=== PATIENT | female | born 1955 | race Caucasian/White ===

== ENCOUNTER 2018-12-16 08:35 | Emergency (ER) | payer MEDICAID ==
[~2018-12-16] VITALS: Ht 160 cm; Wt 72.7 kg
[2018-12-16] MEDS ORDERED: ketorolac trometh inj. 60 MG/2 ML VIAL IM ONE (08:45)
[2018-12-16] MEDS ORDERED: HYDROcodone/acetaminophen 10/325mg tab PO ONE (08:45)
[2018-12-16 09:27] VITALS: BP 130/67
[2018-12-16] MEDS ORDERED: HYDR-4353 PO (09:38)
[2018-12-16] MEDS ORDERED: BUDE10.2 INH (09:46)
== END 2018-12-16 10:13 | disposition home or self-care (01) ==
LOC: ER 08:36
DX: S22.31XA Fracture of one rib, right side, initial encounter for closed fracture (principal); S62.647A Nondisplaced fracture of proximal phalanx of left little finger, initial encounter for closed fracture; S00.83XA Contusion of other part of head, initial encounter; Z88.5 Allergy status to narcotic agent; Z79.899 Other long term (current) drug therapy; J44.9 Chronic obstructive pulmonary disease, unspecified; Z86.718 Personal history of other venous thrombosis and embolism; Z59.0 Homelessness; W18.09XA Striking against other object with subsequent fall, initial encounter; Y93.89 Activity, other specified; Y92.89 Other specified places as the place of occurrence of the external cause; Y99.8 Other external cause status
CPT/HCPCS: 29125; 70450; 71101; 73130; 96372; 99284; J1885

== ENCOUNTER 2018-12-27 07:09 | Emergency (ER) | payer MEDICAID ==
[~2018-12-27] VITALS: Ht 160 cm; Wt 83.0 kg
[~2018-12-27 07:09] MED LIST: BUDE10.2 INH; HYDR-4353 PO
[2018-12-27] MEDS ORDERED: BENZ-16 PO (08:00)
[2018-12-27] MEDS ORDERED: INHA1INH2 (08:00)
[2018-12-27] MEDS ORDERED: ipratropium/albuterol 3ml nebule NEB ONE (08:00)
[2018-12-27] MEDS ORDERED: benzonatate 100mg capsule PO ONE (08:00)
[2018-12-27 08:52] VITALS: BP 140/78
== END 2018-12-27 08:57 | disposition home or self-care (01) ==
LOC: ER 07:10
DX: J06.9 Acute upper respiratory infection, unspecified (principal); J44.9 Chronic obstructive pulmonary disease, unspecified; Z86.718 Personal history of other venous thrombosis and embolism; Z87.891 Personal history of nicotine dependence; Z59.0 Homelessness; Z88.6 Allergy status to analgesic agent
CPT/HCPCS: 94640; 94760; 99284

== ENCOUNTER 2021-04-17 10:34 | Emergency (ER) | payer MEDICAID ==
[~2021-04-17 10:34] MED LIST changes: -HYDR-4353 PO; +INHA1INH2
[2021-04-17] MEDS ORDERED: DEXA6TAB6 PO (10:38)
[2021-04-17] MEDS ORDERED: AZIT250T81 PO (10:38)
[2021-04-17 12:13] VITALS: BP 113/60
== END 2021-04-17 13:37 | disposition home or self-care (01) ==
LOC: ER 10:35
DX: J44.1 Chronic obstructive pulmonary disease with (acute) exacerbation (principal); Z20.822 Contact with and (suspected) exposure to COVID-19; Z59.0 Homelessness; Z88.5 Allergy status to narcotic agent
CPT/HCPCS: 87635; 99283; C9803